=== PATIENT | male | born 1975 | race African-American/Black ===

== ENCOUNTER 2019-08-07 09:02 | Emergency (ER) | payer OTHER ==
[~2019-08-07] VITALS: Ht 188 cm; Wt 95.3 kg
[2019-08-07 09:06] VITALS: BP 140/93
== END 2019-08-07 09:45 | disposition home or self-care (01) ==
LOC: ER 09:02
DX: T16.2XXA Foreign body in left ear, initial encounter (principal); H60.92 Unspecified otitis externa, left ear; I10 Essential (primary) hypertension; E78.5 Hyperlipidemia, unspecified; F17.210 Nicotine dependence, cigarettes, uncomplicated; X58.XXXA Exposure to other specified factors, initial encounter; Y93.89 Activity, other specified; Y92.89 Other specified places as the place of occurrence of the external cause; Y99.8 Other external cause status
CPT/HCPCS: 69200